=== PATIENT | female | born 1955 | race Hispanic/Latino ===

== ENCOUNTER 2017-11-30 09:01 | Outpatient (CLI) | payer MEDICARE, MEDICAID ==
--- NOTE | 2017-12-07 12:48 | PFT ---
PATIENT HISTORY: HEIGHT: 60 IN WEIGHT: 300 SMOKER: NO HOW LON YRS/QUIT 30 YRS AGO PACKS PER DAY PRODUCTIVE COUGH: LUNG DISEASE: PHYSICIAN INTERPRETATION FINAL REPORT: Platform Inspector comments patient had fair effort and good cooperation. She did her test on oxygen, pulse via nasal cannula. She was unable to complete a loop on the FVC. Several attempts were made. FVC 1.10 (42%), FEV1 0.93 (49%), FEV1/FVC 0.84, total expiratory time 6.33 seconds. TLC 2.53 (61%), FRC 1.29 (56%), RV 1.35 (89%). Diffusion 6.92(39%). There is a symmetric reduction to the FEV1 and the FVC, suggestive of restrictive profile. There is a reduced total lung capacity confirming the volume restriction. Diffusion capacity is severely impaired. There is no significant improvement following bronchodilator. IMPRESSION: Overall, these pulmonary function studies are consistent with severe restrictive lung disease with severe impairment in gas exchange. The gas exchange improved dramatically when accounting for alveolar ventilation. Body habitus is likely, in part, contributing to these findings, though radiographic correlation for interstitial process should be considered. Platform Inspector: [employer] Industrial Engineer: CI[employer]
== END 2017-11-30 09:02 | disposition home or self-care (01) ==
LOC: CP 09:01
PROVIDERS: ATTEND Internal Medicine Critical Care Medicine
DX: R06.00 Dyspnea, unspecified (principal)
CPT/HCPCS: 94060; 94727; 94729

== ENCOUNTER 2021-01-27 10:27 | Outpatient (CLI) | payer MEDICARE, MEDICAID | END 2021-01-27 10:28 | disposition home or self-care (01) | LOC: BICRAD 10:27 | PROVIDERS: ATTEND Internal Medicine Critical Care Medicine | DX: R06.00 Dyspnea, unspecified (principal) | CPT/HCPCS: 71046 ==

== ENCOUNTER 2021-11-17 10:52 | Outpatient (CLI) | payer MEDICARE, MEDICAID | END 2021-11-17 10:53 | disposition home or self-care (01) | LOC: RAD 10:52 | PROVIDERS: ATTEND Internal Medicine Critical Care Medicine | DX: R06.00 Dyspnea, unspecified (principal) | CPT/HCPCS: 71046 ==

== ENCOUNTER 2023-02-15 19:00 | Outpatient (CLI) | payer MEDICARE, MEDICAID | END 2023-02-15 19:01 | disposition home or self-care (01) | LOC: SLEEPLAB 19:00 | PROVIDERS: ATTEND Internal Medicine Critical Care Medicine | DX: G47.33 Obstructive sleep apnea (adult) (pediatric) (principal); R53.83 Other fatigue | CPT/HCPCS: 95811 ==